=== PATIENT | female | born 1990 | race African-American/Black ===

== ENCOUNTER 2017-04-22 17:47 | Emergency (ER) | payer OTHER ==
[~2017-04-22] VITALS: Ht 170.2 cm; Wt 59.0 kg
[~2017-04-22 17:47] MED LIST: IBUP-1060 PO; PNV1TABL25 PO
[2017-04-22 18:00] VITALS: BP 111/55
[2017-04-22] MEDS ORDERED: AZIT250T PO (18:55)
--- NOTE | 2017-04-22 18:55 | PHYS DOC ---
Past Medical History Past Medical History: No Pertinent History Past Surgical History: No Surgical History Alcohol Use: None Drug Use: None Adult General Chief Complaint Chief Complaint: COUGH HPI HPI Patient is a 26 year old female presents to the emergency department with her children who are all having the same symptoms. Parent states that she has had the symptoms for the past 2 weeks. She states that she's been having cough and congestion. She denies any fever at the current time. She denies any nausea vomiting diarrhea. She denies any urinary frequency urgency with pain with urination. Review of Systems Review of Systems Constitutional: Denies fever or chills [] Eyes: Denies change in visual acuity, redness, or eye pain [] HENT: Denies nasal congestion or sore throat [] Respiratory: cough denies shortness of breath [] Cardiovascular: No additional information not addressed in HPI [] GI: Denies abdominal pain, nausea, vomiting, bloody stools or diarrhea [] : Denies dysuria or hematuria [] Musculoskeletal: Denies back pain or joint pain [] Integument: Denies rash or skin lesions [] Neurologic: Denies headache, focal weakness or sensory changes [] Endocrine: Denies polyuria or polydipsia [] All other systems were reviewed and found to be within normal limits, except as documented in this note. Allergies Allergies Allergies Coded Allergies Type Severity Reaction Last Updated Verified No Known Drug Allergies 06/02/16 No Physical Exam Physical Exam Constitutional: Well developed, well nourished, no acute distress, non-toxic appearance. [] HENT: Normocephalic, atraumatic, bilateral external ears normal, oropharynx moist, no oral exudates, nose normal. Bilateral tympanic membranes appear to be normal. Throat with postnasal drip with erythematous noted no exudate Eyes: PERRLA, EOMI, conjunctiva normal, no discharge. [] Neck: Normal range of motion, no tenderness, supple, no stridor. [] Cardiovascular:Heart rate regular rhythm, no murmur [] Lungs & Thorax: Bilateral breath sounds clear to auscultation [] Skin: Warm, dry, no erythema, no rash. [] Extremities: No tenderness, no cyanosis, no clubbing, ROM intact, no edema. [] Neurologic: Alert and oriented X 3, normal motor function, normal sensory function, no focal deficits noted. [] Psychologic: Affect normal, judgement normal, mood normal. [] Current Patient Data Vital Signs Vital Signs Date Time Temp Pulse Resp B/P (MAP) Pulse Ox O2 Delivery O2 Flow Rate FiO2 04/22/17 18:00 98.2 76 18 99 Room Air 98.2 EKG EKG [] Radiology/Procedures Radiology/Procedures [] Course & Med Decision Making Course & Med Decision Making Pertinent Labs and Imaging studies reviewed. (See chart for details) Patient will be treated for an upper respiratory infection as these a been going on for approximately 2 weeks. Recommended Tylenol or ibuprofen for fever chills or generalized body aches and discomfort. Also recommended plenty of fluids. She may use Mucinex DM [id number] as needed for cough and congestion. Patient will be discharged home in stable condition signs and symptoms to return back to the emergency department has been provided. All questions and concerns have been answered. [] Dragon Disclaimer Dragon Disclaimer This electronic medical record was generated, in whole or in part, using a voice recognition dictation system. Departure Departure Impression: Primary Impression: Upper respiratory infection Disposition: 01 HOME, SELF-CARE Condition: STABLE Referrals: NO PCP (PCP) Patient Instructions: Upper Respiratory Infection, Adult, [id number] Additional Instructions: Activity as tolerated. Medications as prescribed. Mucinex DM as prescribed by manufacture [id number]. Encourage plenty of fluids. Follow-up primary care physician the next week. Return back to the emergency department as needed for signs and symptoms that become worse. Scripts Azithromycin (ZITHROMAX) 250 Mg Tablet 250 MG PO DAILY for ANTI-BIOTIC, #6 TAB 0 Refills Take 2 tablets today then 1 tablet daily until gone Prov: RONI YAN COPYRIGHT EXPERT 04/22/17 Problem Qualifiers Primary Impression: Upper respiratory infection URI type: unspecified URI Qualified Codes: J06.9 - Acute upper respiratory infection, unspecified RONI YAN COPYRIGHT EXPERT Apr 22, 2017 18:55
== END 2017-04-22 19:03 | disposition home or self-care (01) ==
LOC: ER 17:47
DX: J06.9 Acute upper respiratory infection, unspecified (principal)
CPT/HCPCS: 99283

== ENCOUNTER 2019-12-15 04:37 | Emergency (ER) | payer MEDICAID ==
[~2019-12-15] VITALS: Ht 157.5 cm; Wt 45.4 kg
[~2019-12-15 04:37] MED LIST changes: +AZIT250T PO
--- NOTE | 2019-12-15 04:51 | PHYS DOC ---
Past Medical History Past Medical History: No Pertinent History (WILLOW STANLEY MD) Past Surgical History: No Surgical History (WILLOW STANLEY MD) Smoking Status: Current Every Day Smoker Alcohol Use: None Drug Use: None (WILLOW STANLEY MD) General Adult HPI: HPI: Patient is a 29 year old female who presents with abdominal pain. Patient arrived via EMS and is not the most reliable historian at this time. She stated to me that she began to have problems with lower abdominal pain yesterday accompanied by diarrhea. She was unable to describe the character or frequency of diarrhea. However this morning the patient began to have nausea and vomiting. She denied fever, cough, chest pain, shortness of breath or any change in urination. (WILLOW STANLEY MD) Review of Systems: Review of Systems: Constitutional: Denies fever or chills. [] Eyes: Denies change in visual acuity. [] HENT: Denies nasal congestion or sore throat. [] Respiratory: Denies cough or shortness of breath. [] Cardiovascular: Denies chest pain or edema. [] GI: See HPI [] : Denies dysuria. [] Musculoskeletal: Denies back pain or joint pain. [] Integument: Denies rash. [] Neurologic: Denies headache, focal weakness or sensory changes. [] Endocrine: Denies polyuria or polydipsia. [] Lymphatic: Denies swollen glands. [] Psychiatric: Denies depression or anxiety. [] (WILLOW STANLEY MD) Heart Score: Risk Factors: Risk Factors: DM, Current or recent (<one month) smoker, HTN, HLP, family history of CAD, obesity. Risk Scores: Score 0 - 3: 2.5% MACE over next 6 weeks - Discharge Home Score 4 - 6: 20.3% MACE over next 6 weeks - Admit for Clinical Observation Score 7 - 10: 72.7% MACE over next 6 weeks - Early Invasive Strategies (WILLOW STANLEY MD) Allergies: Allergies: Allergies Coded Allergies Type Severity Reaction Last Updated Verified No Known Drug Allergies 06/02/16 No (WILLOW STANLEY MD) Physical Exam: PE: Constitutional: Well developed, well nourished, no acute distress, non-toxic appearance. [] HENT: Normocephalic, atraumatic, bilateral external ears normal, oropharynx dry, no oral exudates, nose normal. [] Eyes: PERRLA, EOMI, conjunctiva normal, no discharge. [] Neck: Normal range of motion, no tenderness, supple, no stridor. [] Cardiovascular:Heart rate regular rhythm, no murmur [] Lungs & Thorax: Bilateral breath sounds clear to auscultation [] Abdomen: Bowel sounds normal, soft, tender in bilateral lower quadrants with voluntary guarding, no masses, no pulsatile masses. [] Skin: Warm, dry, no erythema, no rash. [] Back: No tenderness, no CVA tenderness. [] Extremities: No tenderness, no cyanosis, no clubbing, ROM intact, no edema. [] Neurologic: Alert and oriented X 3, normal motor function, normal sensory function, no focal deficits noted. [] Psychologic: Affect normal, judgement normal, mood normal. [] (WILLOW STANLEY MD) EKG: EKG: [] (WILLOW STANLEY MD) Radiology/Procedures: Radiology/Procedures: [] (WILLOW STANLEY MD) Course & Med Decision Making: Course & Med Decision Making Pertinent Labs and Imaging studies reviewed. (See chart for details) 0535-the patient was seen and evaluated. At this time laboratory and CT data are pending. The patient will be turned over to Dr. Roberts at 0600. [] (WILLOW STANLEY MD) Course & Med Decision Making Assumed care of patient at checkout from overnight physician. At checkout CT abdomen pelvis is pending. CT is normal. Patient striction is positive for cannabinoids. Is possible this is cyclic vomiting syndrome. Patient was given Haldol because she was screaming out in pain and nausea. Symptoms resolved with Haldol. Patient's test results and vitals while in the ED were fully reviewed and discussed with the patient. Patient is stable and at this time does not need admission to the hospital. We have discussed strict return precautions and the importance of following up with their Primary Care Physician. Patient stated understanding and was given an opportunity to ask any questions. Patient is in agreement with plan. (DALIA ROBERTS MD) Dragon Disclaimer: Dragon Disclaimer: This electronic medical record was generated, in whole or in part, using a voice recognition dictation system. (WILLOW STANLEY MD) Departure Departure Impression: Primary Impression: Abdominal pain, bilateral lower quadrant Referrals: NO PCP (PCP) Scripts Ondansetron Hcl (ZOFRAN) 4 Mg Tablet 1 TAB PO PRN Q6-8HRS for nausea, #12 TAB Prov: DALIA ROBERTS MD 12/15/19 Justicifation of Admission Dx: Justifications for Admission: Justification of Admission Dx: N/A (WILLOW STANLEY MD) WILLOW STANLEY MD Dec 15, 2019 04:51 DALIA ROBERTS MD Dec 15, 2019 09:25
[2019-12-15] MEDS ORDERED: IV NORMAL SALINE 1000ML BAG 1,000 ML IV ONE (05:00)
[2019-12-15] MEDS ORDERED: HYDROmorphone 2 MG/ML VIAL IV ONE (05:00)
[2019-12-15 06:50] LABS: BILIRUBIN,URINE NEGATIVE (NEG); CLARITY,URINE CLEAR; COLOR,URINE YELLOW; NITRITE,URINE NEGATIVE (NEG); PH,URINE 5.5 (<5.0-8.0); PROTEIN,URINE 30 mg/dL (NEG-TRACE); UROBILINOGEN,URINE 0.2 mg/dL (0.2 mg/dL)
[2019-12-15 06:50] LABS: BASO % 1 % (0-3); EOS % 0 % (0-3); HEMATOCRIT 37.1 % (36.0-47.0); HEMOGLOBIN 12.8 g/dL (12.0-15.5); LYMPH # 0.7 x10^3/uL (1.0-4.8); LYMPH % 13 % (24-48); MEAN CORPUSCULAR HEMOGLOBIN 31 pg (25-35); MEAN CORPUSCULAR HGB CONC 35 g/dL (31-37); MEAN CORPUSCULAR VOLUME 90 fL (79-100); MONO # 0.2 x10^3/uL (0.0-1.1); MONO % 3 % (0-9); NEUT # 4.6 x10^3/uL (1.8-7.7); NEUT % 83 % (31-73); PLATELET COUNT 415 x10^3/uL (140-400); RED BLOOD COUNT 4.14 x10^6/uL (3.50-5.40); RED CELL DISTRIBUTION WIDTH 13.8 % (11.5-14.5); WHITE BLOOD COUNT 5.5 x10^3/uL (4.0-11.0)
[2019-12-15 06:54] LABS: BARBITURATES NEG (NEG); BENZODIAZEPINES NEG (NEG); CANNABINOIDS POS (NEG); COCAINE NEG (NEG); METHADONE NEG (NEG); OPIATES POS (NEG); PHENCYCLIDINE NEG (NEG)
[2019-12-15 06:55] LABS: AMPHETAMINE/METHAMPHETAMINE NEG (NEG)
[2019-12-15 06:59] LABS: CALCIUM 8.3 mg/dL (8.5-10.1); CREATININE 1.1 mg/dL (0.6-1.0); GFR 72.1; POTASSIUM 3.6 mmol/L (3.5-5.1)
[2019-12-15 07:01] LABS: PROTHROMBIN TIME PATIENT 14.7 SEC (11.7-14.0)
[2019-12-15 07:04] LABS: ALBUMIN 4.1 g/dL (3.4-5.0); ALBUMIN/GLOBULIN RATIO 1.1 (1.0-1.7); TOTAL BILIRUBIN 1.3 mg/dL (0.2-1.0); TOTAL PROTEIN 7.8 g/dL (6.4-8.2)
[2019-12-15] MEDS ORDERED: IOHEXOL 300 MG/ML 100ML VIAL. IV ONE (07:15)
[2019-12-15 07:16] LABS: RBC,URINE 0 /HPF (0-2); SQUAMOUS EPITHELIAL CELL,UR MANY /LPF
[2019-12-15 07:17] LABS: BACTERIA,URINE MODERATE /HPF (0-FEW)
--- NOTE | 2019-12-15 07:48 | RAD ---
PQRS Compliance Statement: One or more of the following individualized dose reduction techniques were utilized for this examination: 1. Automated exposure control 2. Adjustment of the mA and/or kV according to patient size 3. Use of iterative reconstruction technique CT ABD PELV W/ IV CONTRST ONLY Clinical Indication: Reason: LOWER ABD PAIN, nausea, vomiting, diarrhea, upper respiratory infection. Comparison: None. Technique: Helical CT imaging of the abdomen and pelvis is performed after 75 cc of Omnipaque 300 IV contrast. Oral contrast not administered. Findings: Lung bases are clear. Cardiac size normal. The liver, gallbladder, spleen, pancreas, adrenal glands, abdominal aorta, and kidneys are normal. No obvious abnormality of the stomach. There is no dilated small bowel. There is no colon wall thickening. Appendix is not identified, no secondary signs of appendicitis. No abdominal adenopathy or free fluid. The uterus is retroverted. The urinary bladder is decompressed, accentuating wall thickness. There is moderate air in the vagina. There is 1.5 cm peripherally enhancing right ovary functional cyst. Mild pelvic free fluid. No acute bone abnormality. IMPRESSION: 1. No acute abdominal or pelvic abnormality. 2. Small right ovary functional cyst. Mild pelvic free fluid. Findings likely physiologic. Electronically signed by: Cody Saunders MD (12/15/2019 7:45 AM) [id number]
[2019-12-15] MEDS ORDERED: HALOPERIDOL LACTATE 5 MG/ML VIAL. IVP ONE (08:00)
[2019-12-15 09:00] VITALS: BP 94/52
[2019-12-15] MEDS ORDERED: ONDA4TAB7 PO (09:16)
--- NOTE | 2019-12-17 09:26 | NUR ---
IP: Informed pt of negative COVID testing. Pt verbalized understanding.
== END 2019-12-15 09:29 | disposition home or self-care (01) ==
LOC: ER 04:37
DX: R10.31 Right lower quadrant pain (principal); R10.32 Left lower quadrant pain; R11.2 Nausea with vomiting, unspecified; F17.200 Nicotine dependence, unspecified, uncomplicated
CPT/HCPCS: 36415; 74177; 80053; 80307; 81001; 81025; 83690; 85025; 85610; 87086; 96361; 96374; 96375; 99285; G0480; J1170; J1630; J7030; Q9967; U0003

== ENCOUNTER 2020-04-06 16:53 | Emergency (ER) | payer MEDICAID ==
[~2020-04-06] VITALS: Ht 170.2 cm; Wt 110.0 kg
[~2020-04-06 16:53] MED LIST changes: +ONDA4TAB7 PO
[2020-04-06] MEDS ORDERED: PROCHLORPERAZINE 10 MG/2 ML VIAL. IV ONE (18:15)
[2020-04-06] MEDS ORDERED: IV NORMAL SALINE 1000ML BAG 1,000 ML IV ONE (18:15)
[2020-04-06 18:26] LABS: BASO % 0 % (0-3); EOS % 1 % (0-3); HEMATOCRIT 33.7 % (36.0-47.0); HEMOGLOBIN 11.7 g/dL (12.0-15.5); LYMPH # 0.6 x10^3/uL (1.0-4.8); LYMPH % 8 % (24-48); MEAN CORPUSCULAR HEMOGLOBIN 31 pg (25-35); MEAN CORPUSCULAR HGB CONC 35 g/dL (31-37); MEAN CORPUSCULAR VOLUME 89 fL (79-100); MONO # 0.2 x10^3/uL (0.0-1.1); MONO % 3 % (0-9); NEUT # 7.3 x10^3/uL (1.8-7.7); NEUT % 89 % (31-73); PLATELET COUNT 382 x10^3/uL (140-400); RED BLOOD COUNT 3.77 x10^6/uL (3.50-5.40); RED CELL DISTRIBUTION WIDTH 13.8 % (11.5-14.5); WHITE BLOOD COUNT 8.2 x10^3/uL (4.0-11.0)
--- NOTE | 2020-04-06 18:40 | PHYS DOC ---
Past Medical History Past Medical History: No Pertinent History (MIKEY LI APRN) Past Surgical History: No Surgical History (MIKEY LI APRN) Smoking Status: Current Every Day Smoker Alcohol Use: None Drug Use: None Social History Narrative: "I STOPPED WHEN I FOUND OUT I WAS " (MIKEY LI APRN) General Adult EDM: Chief Complaint: ABDOMINAL PAIN HPI: HPI: Patient is a 29 year old female 5 para 2 with 2 abortions who presents to the ED today complaining of nausea and vomiting in that began 2 weeks ago. Patient states she is 7 to 8 weeks . She states she has an appointment with an SCIENTIFIC SPECIALIST on April [address] Dr[address] Valladares. Patient denies any abdominal pain, denies any vaginal bleeding. Patient informed EMS she was in her third trimester and was sent to the OB floor where she was evaluated and returned back to the ED because they could not find a heartbeat and hence not in her third trimester (MIKEY LI APRN) Review of Systems: Review of Systems: Constitutional: Denies fever or chills. [] Eyes: Denies change in visual acuity. [] HENT: Denies nasal congestion or sore throat. [] Respiratory: Denies cough or shortness of breath. [] Cardiovascular: Denies chest pain or edema. [] GI: Reports nausea and vomiting. Denies abdominal pain, bloody stools or diarrhea. [] : Denies dysuria. [] Musculoskeletal: Denies back pain or joint pain. [] Integument: Denies rash. [] Neurologic: Denies headache, focal weakness or sensory changes. [] Psychiatric: Denies depression or anxiety. [] (MIKEY LI APRN) Heart Score: Risk Factors: Risk Factors: DM, Current or recent (<one month) smoker, HTN, HLP, family history of CAD, obesity. Risk Scores: Score 0 - 3: 2.5% MACE over next 6 weeks - Discharge Home Score 4 - 6: 20.3% MACE over next 6 weeks - Admit for Clinical Observation Score 7 - 10: 72.7% MACE over next 6 weeks - Early Invasive Strategies (MIKEY LI APRN) Current Medications: Current Medications Medications (Trade) Dose Ordered Sig/Nolan Start Time Stop Time Status Last Admin Dose Admin Prochlorperazine Edisylate (Compazine) 10 mg 1X ONCE 04/06/20 18:15 04/06/20 18:16 DC 04/06/20 18:34 10 MG Sodium Chloride 1,000 ml @ 1,000 mls/hr 1X ONCE 04/06/20 18:15 04/06/20 19:14 (MIKEY LI DRAWING IN HAND) Allergies: Allergies: Allergies Coded Allergies Type Severity Reaction Last Updated Verified No Known Drug Allergies 06/02/16 No (MIKEY LI DRAWING IN HAND) Physical Exam: PE: Constitutional: Well developed, well nourished, no acute distress, non-toxic appearance. [] HENT: Normocephalic, atraumatic, bilateral external ears normal, oropharynx moist, no oral exudates, nose normal. [] Eyes: PERRLA, EOMI, conjunctiva normal, no discharge. [] Neck: Normal range of motion, no tenderness, supple, no stridor. [] Cardiovascular:Heart rate regular rhythm, no murmur [] Lungs & Thorax: Bilateral breath sounds clear to auscultation [] Abdomen: Bowel sounds normal, soft, no tenderness, no masses, no pulsatile masses. [] Patient is dry heaving Skin: Warm, dry, no erythema, no rash. [] Back: No tenderness, no CVA tenderness. [] Extremities: No tenderness, no cyanosis, no clubbing, ROM intact, no edema. [] Neurologic: Alert and oriented X 3, normal motor function, normal sensory function, no focal deficits noted. [] Psychologic: Affect normal, judgement normal, mood normal. [] (MIKEY LI DRAWING IN HAND) Current Patient Data: Labs: Laboratory Tests Test 04/06/20 18:14 White Blood Count 8.2 x10^3/uL (4.0-11.0) Red Blood Count 3.77 x10^6/uL (3.50-5.40) Hemoglobin 11.7 g/dL (12.0-15.5) L Hematocrit 33.7 % (36.0-47.0) L Mean Corpuscular Volume 89 fL (79-100) Mean Corpuscular Hemoglobin 31 pg (25-35) Mean Corpuscular Hemoglobin Concent 35 g/dL (31-37) Red Cell Distribution Width 13.8 % (11.5-14.5) Platelet Count 382 x10^3/uL (140-400) Neutrophils (%) (Auto) 89 % (31-73) H Lymphocytes (%) (Auto) 8 % (24-48) L Monocytes (%) (Auto) 3 % (0-9) Eosinophils (%) (Auto) 1 % (0-3) Basophils (%) (Auto) 0 % (0-3) Neutrophils # (Auto) 7.3 x10^3/uL (1.8-7.7) Lymphocytes # (Auto) 0.6 x10^3/uL (1.0-4.8) L Monocytes # (Auto) 0.2 x10^3/uL (0.0-1.1) Eosinophils # (Auto) 0.0 x10^3/uL (0.0-0.7) Basophils # (Auto) 0.0 x10^3/uL (0.0-0.2) Platelet Estimate Pending Laboratory Tests 04/06/20 18:14 Vital Signs: Vital Signs Date Time Temp Pulse Resp B/P (MAP) Pulse Ox O2 Delivery O2 Flow Rate FiO2 04/06/20 17:15 99.2 69 16 110/58 (75) 100 Room Air 99.2 (MIKEY LI APRN) EKG: EKG: [] (MIKEY LI APRN) Radiology/Procedures: Radiology/Procedures: []PROCEDURE: OB < 14 WKS Exam: Ultrasound OB less than 14 weeks Indication: Abdominal pain and Technique: Real-time grayscale and color Doppler images of the pelvis were obtained by the department can dryer. Comparisons: None FINDINGS: Uterus measures 12.0 x 7.4 x 6.7 cm. Within the endometrium there is a gestational sac with yolk sac and pole. heart rate measured at 169 bpm. [place]-rump length is 1.8 cm corresponding to 8 weeks 2 days gestation. Ovaries are not visualized. No free fluid in the pelvis. IMPRESSION: Single live intrauterine gestation of 8 weeks 1 day by LMP with concordant ultrasound. Dedicated survey is recommended at 18-20 weeks gestation. Electronically signed by: Tanisha Garcia MD (04/06/2020 7:50 PM) [id number] DICTATED and SIGNED BY: TANISHA GARCIA MD DATE: 04/06/20 [id number] 0 (MIKEY LI APRN) Course & Med Decision Making: Course & Med Decision Making Pertinent Labs and Imaging studies reviewed. (See chart for details) This is a 29-year-old female patient 5 para 2 with 2 abortions who presents to the ED today complaining of nausea and vomiting for 2 weeks. Patient reports being 7 to 8 weeks though she told EMS she was on her third trimester and was sent to the OB floor where they found out she is not that far along. She was sent back to the ED. Nursing staff noted patient was putting fingers in her throat and making herself vomit. Beta-hCG 90,564, UA negative for infection. CBC with a normal WBC, hemoglobin 11.7, hematocrit 33.7. Noted for marijuana use. OB ultrasound noted for an IUP 8 weeks 2 days with a heart rate of 169. Patient was given IV fluids and nausea medicine, symptoms of been relieved. Discharge to home with Zofran and promethazine. She has an appointment with her SCIENTIFIC SPECIALIST on April 16. I requested she contact the SCIENTIFIC SPECIALIST tomorrow and see if she can get a sooner appointment (MIKEY LI APRN) Dragon Disclaimer: Dragmarguerite Disclaimer: This electronic medical record was generated, in whole or in part, using a voice recognition dictation system. (MIKEY LI APRN) Departure Departure Impression: Primary Impression: Hyperemesis gravidarum Additional Impression: Marijuana use Disposition: 01 DC HOME SELF CARE/HOMELESS Condition: STABLE Referrals: NO PCP (PCP) Follow-up with your SCIENTIFIC SPECIALIST as soon as possible Patient Instructions: Diet - Hyperemesis Gravidarum, Hyperemesis Gravidarum Additional Instructions: You were evaluated in the emergency room for vomiting in . Please take the prescribed medications as needed for nausea or vomiting. Please follow-up with your SCIENTIFIC SPECIALIST, contact the office tomorrow and set up a follow-up appointment Scripts Promethazine Hcl (PROMETHAZINE HCL) 25 Mg Tablet 1 TAB PO PRN Q6HRS, #30 TAB Prov: MIKEY LI APRN 04/06/20 Ondansetron (ONDANSETRON ODT) 4 Mg Tab.rapdis 1 TAB PO PRN Q6-8HRS, #30 TAB Prov: MIKEY LI APRN 04/06/20 Attending Signature Attending Signature I have reviewed the PA/ULTRASOUND TECH's note and plan of care. I was available for consultation as needed during the patient's visit in the emergency department. I agree with the clinical impression, plan, and disposition. (ZAC BERNAL DO) MIKEY LI APRN Apr 06, 2020 18:40 ZAC BERNAL DO Apr 07, 2020 01:00
[2020-04-06 18:45] LABS: CALCIUM 9.3 mg/dL (8.5-10.1); CREATININE 0.6 mg/dL (0.6-1.0); GFR 145.1; POTASSIUM 3.9 mmol/L (3.5-5.1)
--- NOTE | 2020-04-06 18:49 | NUR ---
Pt. was originally deposited to L&D via EMS. L&D RN, Greer Butt, requested triage by ER. care team coordinator scheduler determined pt. needed direct deposit to L&D without ER triage. VS, FHT Doppler check, and SVE were completed. BP: 101/56 HR: 79 Temp: 98.1 RR: 20. Josee Mccall RN unable to obtain FHT via doppler. Greer Martinez RN found cervix to be firm and hard. Pt. not forthcoming with information regarding current but did relate LMP to be 01/31/20. Making a possible gestational age of 8 weeks and 1 day. Pt. was stable and able to be taken back to ER via for proper ER admission and triage of pt.
[2020-04-06 18:50] LABS: ALBUMIN 4.1 g/dL (3.4-5.0); ALBUMIN/GLOBULIN RATIO 1.3 (1.0-1.7); TOTAL BILIRUBIN 0.9 mg/dL (0.2-1.0); TOTAL PROTEIN 7.2 g/dL (6.4-8.2)
[2020-04-06 19:15] LABS: % BANDS 2 % (0-9); % LYMPHS 8 % (24-48); % MONOS 4 % (0-10); % SEGS 86 % (35-66); PLT ESTIMATE ADEQUATE (ADEQUATE); POIKILOCYTOSIS SLIGHT
[2020-04-06 19:16] LABS: OVALOCYTES FEW
--- NOTE | 2020-04-06 19:54 | RAD ---
Exam: Ultrasound OB less than 14 weeks Indication: Abdominal pain and Technique: Real-time grayscale and color Doppler images of the pelvis were obtained by the department switchboard and control room operator. Comparisons: None FINDINGS: Uterus measures 12.0 x 7.4 x 6.7 cm. Within the endometrium there is a gestational sac with yolk sac and pole. heart rate measured at 169 bpm. [place]-rump length is 1.8 cm corresponding to 8 weeks 2 days gestation. Ovaries are not visualized. No free fluid in the pelvis. IMPRESSION: Single live intrauterine gestation of 8 weeks 1 day by LMP with concordant ultrasound. Dedicated survey is recommended at 18-20 weeks gestation. Electronically signed by: Tanisha Hines MD (04/06/2020 7:50 PM) [id number]
[2020-04-06 20:12] LABS: BILIRUBIN,URINE NEGATIVE (NEG); CLARITY,URINE CLEAR; COLOR,URINE YELLOW; NITRITE,URINE NEGATIVE (NEG); PH,URINE 6.5 (<5.0-8.0); PROTEIN,URINE 30 mg/dL (NEG-TRACE); UROBILINOGEN,URINE 0.2 mg/dL (0.2 mg/dL)
[2020-04-06] MEDS ORDERED: ONDANSETRON PF 4 MG/2 ML VIAL. IVP ONE (20:15)
[2020-04-06] MEDS ORDERED: ACETAMINOPHEN 500 MG TABLET PO ONE (20:15)
[2020-04-06 20:18] LABS: BACTERIA,URINE FEW /HPF (0-FEW); BARBITURATES NEG (NEG); BENZODIAZEPINES NEG (NEG); CANNABINOIDS POS (NEG); COCAINE NEG (NEG); METHADONE NEG (NEG); OPIATES NEG (NEG); PHENCYCLIDINE NEG (NEG); RBC,URINE 0 /HPF (0-2); WBC,URINE OCC /HPF (0-4)
[2020-04-06 20:19] LABS: AMPHETAMINE/METHAMPHETAMINE NEG (NEG)
[2020-04-06] MEDS ORDERED: PROM25TA10 PO (21:01)
[2020-04-06] MEDS ORDERED: ONDA4TAB12 PO (21:01)
[2020-04-06 21:11] VITALS: BP 110/55
== END 2020-04-06 21:11 | disposition home or self-care (01) ==
LOC: ER 16:53
DX: O21.0 Mild hyperemesis gravidarum (principal); F12.90 Cannabis use, unspecified, uncomplicated; O99.331 Smoking (tobacco) complicating pregnancy, first trimester; Z3A.08 8 weeks gestation of pregnancy
CPT/HCPCS: 36415; 76801; 80053; 80307; 81001; 84702; 85007; 85025; 96361; 96374; 96375; 99284; J0780; J2405; J7030